=== PATIENT | male | born 1955 ===

== ENCOUNTER 2023-01-15 05:51 | Outpatient (CLI) | payer BC ==
[~2023-01-15] VITALS: Ht 180.3 cm; Wt 91.4 kg
[~2023-01-15 05:51] MED LIST: SULF1TAB35 PO
[2023-01-17] MEDS ORDERED: OMEG100032 PO (13:34)
[2023-01-17] MEDS ORDERED: ERGO1250 PO (13:34)
[2023-01-17] MEDS ORDERED: PRAV40TA2 PO (13:34)
[2023-01-17] MEDS ORDERED: MULT-593 PO (13:34)
[2023-01-17] MEDS ORDERED: BISO-2 PO (13:34)
[2023-01-17] MEDS ORDERED: BEET ROOT EXTRACT PO (13:34)
== END 2023-01-17 13:37 | disposition home or self-care (01) ==
LOC: PREOP 05:51
PROVIDERS: ATTEND Internal Medicine
DX: Z01.818 Encounter for other preprocedural examination (principal)

== ENCOUNTER 2023-01-24 08:03 | Day surgery (SDC) | payer BC ==
--- NOTE | 2023-01-10 08:30 | HISTORY AND PHYSICAL ---
DATE OF SERVICE: 01/24/2023 COLONOSCOPY HISTORY AND PHYSICAL HISTORY OF PRESENT ILLNESS: The patient is a pleasant 67-year-old white male referred for screening colonoscopy. He reports one other colonoscopy 15 years ago that was unremarkable. He is deemed to be of average risk. He is not aware of any family history for colon cancer or colon polyps. He denies bright red blood per rectum, melena, abdominal pain, change in weight or change in bowel habit. PAST SURGICAL HISTORY: Significant for bilateral arthroscopic knee surgery. Reports that he has, what sounds like, grade IV bilateral osteoarthritis for which he sees an orthopedist. PAST MEDICAL HISTORY: Significant for hyperlipidemia and hypertension with no known history for vascular disease. MEDICATIONS: Include Pravastatin 40 mg daily; bisoprolol; hydrochlorothiazide 5/6.25 mg 1 twice daily; 2000 mg fish oil daily; 1000 mg beet root extract; multiple vitamin daily; and 1000 units of vitamin D daily. 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 He has no past smoking history and no significant alcohol intake history. FAMILY HISTORY: Father of complications of a fall with leg fracture at the age of 91. Mother is still living at 84 with no health problems. REVIEW OF SYSTEMS: CONSTITUTIONAL: Denies night sweats, chills, fever, or change in weight. GASTROINTESTINAL: As noted in the HPI. PULMONARY: Denies cough, wheezing or shortness of breath. CARDIOVASCULAR: Denies chest pain, dyspnea on exertion, syncope, orthopnea or PND. PHYSICAL EXAMINATION: GENERAL: Reveals a pleasant white male in no acute distress. VITAL SIGNS: Weight 201 pounds, blood pressure 130/67. HEENT: Unremarkable. Sclerae are nonicteric. CHEST: Clear to auscultation. CARDIOVASCULAR: Reveals a regular rate and rhythm without murmur, S3 or S4. ABDOMEN: Soft, supple without mass, organomegaly, or tenderness. EXTREMITIES: Revealed no cyanosis, clubbing or edema. ASSESSMENT AND PLAN: The patient is being set up for screening colonoscopy, deemed to be of average risk. Prep instructions with Suprep kit were given and questions were answered. I thank you for referral of this pleasant gentleman. Referring Physician: Lynn Woods M.D. Job ID: [id number] DocumentID: [id number] Dictated Date: 01/01/2023 11:51:27 Airport Ramp Supervisor Date: 01/01/2023 12:27:00 Dictated By: ELENA ROSE MD
[~2023-01-24] VITALS: Ht 180.3 cm; Wt 91.4 kg
[~2023-01-24 08:03] MED LIST changes: +BEET ROOT EXTRACT PO; +BISO-2 PO; +ERGO1250 PO; +MULT-593 PO; +OMEG100032 PO; +PRAV40TA2 PO
[2023-01-24] MEDS ORDERED: LACTATED RINGERS 1,000 ML 1,000 ML IV STA (08:11)
[2023-01-24 08:25] VITALS: BP 143/92
--- NOTE | 2023-01-24 08:33 | Pre-Op Note & Conscious Sedat ---
Pre-Operative Progress Note Date H&P Reviewed: Jan 24, 2023 Time H&P Reviewed: 08:33 History & Physical: H&P Reviewed, Patient Examed, No changes noted Pre-Op Diagnosis: screening Moderate Sedation PreProcedure ASA Score 2 Airway Lungs Heart ASA score ASA 1: a normal healthy patient ASA 2: a patient with a mild systemic disease (mid diabetes, controlled hypertension, obesity ASA 3: a patient with a severe systemic disease that limits activity (angina, COPD, prior Myocardial infarction) ASA 4: a patient with an incapacitating disease that is a constant threat to life (CHF, renal failure) ASA 5: a moribund patient not expected to survive 24 hrs. (ruptured aneurysm) ASA 6: a declared brain- patient whose organs are being harvested. For emergent operations, add the letter E after the classification Mallampati Classification Grade 2 Sedation Plan Analgesia, Amnesia, Plan communicated to team members, Discussed options with patient/fam, Discussed risks with patient/fam The patient is an appropriate candidate to undergo the planned procedure, sedation, and anesthesia. The patient immediately re-assessed prior to indication. ELENA ROSE MD Jan 24, 2023 08:33
--- NOTE | 2023-01-24 09:44 | Anesthesia-General Post-Op ---
MAC Patient Condition Mental Status/LOC: Same as Preop Cardiovascular: Satisfactory Nausea/Vomiting: Absent Respiratory: Satisfactory Pain: Controlled Complications: Absent Post Op Complications Complications None Follow Up Care/Instructions Patient Instructions None needed. Anesthesiology Discharge Order Discharge Order Patient is doing well, no complaints, stable vital signs, no apparent adverse anesthesia problems. No complications reported per nursing. CRIS CLEMENTE CRNA Jan 24, 2023 09:43
[2023-01-24 09:45] VITALS: BP 118/73
[2023-01-24 09:50] VITALS: BP 114/70
--- NOTE | 2023-01-24 09:50 | Progress Note-Post Operative ---
Post-Procedure Note Physician (s)/Spray Gun Repairer (s) Physician ELENA ROSE MD Pre-Procedure Diagnosis Pre-Procedure Diagnosis: screening Post-Procedure Diagnosis Post-operative diagnosis: Prior to undergoing colonoscopy digital rectal evaluation was performed. Anal sphincter tone was normal and the perianal reflexes intact. The prostate is normal in size and a nodular on digital inspection. No abnormalities noted on digital specks in anal canal or distal rectal vault. The colonoscope was inserted into the rectum and under direct visualization advanced to the cecum. The cecum was identified by the indication of the ileocecal valve and cecal strap. Photographic documentation was obtained. A careful inspection was made as the colonoscope withdrawn. Quality the prep was good. Findings Several grade 1 internal hemorrhoid complexes were noted no evidence for external hemorrhoids were noted. The rectum was unremarkable. Present the distal descending colon was a 2 mm sessile polyp was photographed and biopsied and ablated with no subsequent blood loss. The sigmoid colon descending colon and splenic flexure were unremarkable. Present in the proximal transverse colon was a 4 mm sessile polyp it was removed in entirety via cold forceps with no blood loss. Of the hepatic flexure ascending colon and cecum were unremarkable. A/P 1. 2 diminutive polyps were removed 1 via hot forceps together via cold forceps from the distal sigmoid colon and proximal ascending colon. As long as there are no surprises on histopathology report would advocate consideration for repeat screening colonoscopy in 10 years. Prostate was unremarkable digital inspection there were several grade 1 internal hemorrhoid complexes noted. I thank you for the furl is pleasant gentleman sincerely Elena Rose MD. CC: Dr. SEFERINO ROSE,ELENA Bowser MD Jan 24, 2023 09:50
[2023-01-24 09:55] VITALS: BP 112/78
[2023-01-24 10:32] VITALS: BP 112/78
== END 2023-01-24 13:29 | disposition home or self-care (01) ==
LOC: ENDO 08:03
PROVIDERS: ATTEND Internal Medicine
DX: Z12.11 Encounter for screening for malignant neoplasm of colon (principal); D12.3 Benign neoplasm of transverse colon; D12.5 Benign neoplasm of sigmoid colon; K64.0 First degree hemorrhoids